=== PATIENT | female | born 2000 | race Caucasian/White ===

== ENCOUNTER 2019-05-21 08:26 | Emergency (ER) | payer OTHER ==
[~2019-05-21] VITALS: Ht 165.1 cm; Wt 59.5 kg
[2019-05-21 10:26] LABS: EOSINOPHILS % (AUTO) 0.9 % (1.0-6.0); HEMATOCRIT 38.1 % (36-46); HEMOGLOBIN 11.8 g/dL (12.0-16.0); LYMPHOCYTES # (AUTO) 2.1 K/uL (1.0-4.8); LYMPHOCYTES % (AUTO) 36.5 % (22.0-44.0); MEAN CORPUSCULAR HEMOGLOBIN 25.9 pg (26.0-34.0); MEAN CORPUSCULAR HGB CONC 30.9 G/dL (31.0-37.0); MEAN CORPUSCULAR VOLUME 84 fL (80-100); MONOCYTES # (AUTO) 0.6 K/uL (0.1-1.0); MONOCYTES % (AUTO) 10.1 % (2.0-9.0); NEUTROPHILS # (AUTO) 2.9 K/uL (1.8-7.7); NEUTROPHILS % (AUTO) 51.5 % (40.0-70.0); PLATELET COUNT (AUTO) 247 K/uL (150-450); RED BLOOD CELL COUNT(AUTO) 4.55 MIL/uL (4.00-5.20)
[2019-05-21 10:37] LABS: AMPHET/METH SCREEN,URINE NEGATIVE (NEGATIVE); BARBITURATE SCREEN, URINE NEGATIVE (NEGATIVE); BENZODIAZEPINES SCREEN,URINE NEGATIVE (NEGATIVE); CANNABINOID SCREEN,URINE POSITIVE (NEGATIVE); COCAINE SCREEN,URINE NEGATIVE (NEGATIVE); METHADONE SCREEN, URINE NEGATIVE (NEGATIVE); OPIATE SCREEN,URINE NEGATIVE (NEGATIVE); PHENCYCLIDINE SCREEN,URINE NEGATIVE (NEGATIVE)
[2019-05-21 10:43] LABS: ANION GAP 5 mmol/L (8-16); CALCIUM, TOTAL 9.7 mg/dL (8.8-10.5); CARBON DIOXIDE 27 mmol/L (22-29); CHLORIDE 104 mmol/L (98-107); CREATININE 0.75 mg/dL (0.60-1.30); GLOMERULAR FILTR. RATE CALC > 60 mL/min (>60); GLUCOSE,RANDOM 72 mg/dL (70-110); POTASSIUM 3.8 mmol/L (3.5-5.1); SODIUM SERUM 136 mmol/L (136-145)
[2019-05-21 10:54] LABS: ALANINE AMINOTRANSFERASE 20 U/L (12-78); ALBUMIN 3.8 g/dL (3.4-5.0); ALKALINE PHOSPHATASE 48 U/L (46-116); ASPARTATE AMINOTRANSFERASE 17 U/L (15-37); BILIRUBIN,TOTAL 0.3 mg/dL (0.1-1.0); HCG,QUANTITATIVE < 1 mIU/mL (0-6); TOTAL PROTEIN, SERUM 7.8 g/dL (6.4-8.2)
[2019-05-21 11:00] LABS: UREA NITROGEN, BLOOD 17 mg/dL (7-18)
[2019-05-21 11:25] VITALS: BP 103/84
== END 2019-05-21 11:35 | disposition home or self-care (01) ==
LOC: EMS 08:26
DX: R55 Syncope and collapse (principal); R42 Dizziness and giddiness; R53.1 Weakness; F17.210 Nicotine dependence, cigarettes, uncomplicated; F12.90 Cannabis use, unspecified, uncomplicated; Z79.899 Other long term (current) drug therapy
CPT/HCPCS: 36415; 80053; 80307; 84702; 85025; 93005; 99284; 99406; G0480